=== PATIENT | male | born 1985 | race Hispanic/Latino ===

== ENCOUNTER 2017-09-19 06:06 | Observation (INO) | payer OTHER ==
[2017-09-19 06:19] VITALS: BMI 25.1
--- NOTE | 2017-09-19 07:29 | ED PDOC ---
Lower Extremity Pain/Injury Time Seen by Provider: 09/19/17 07:22 Chief Complaint (Nursing): Lower Extremity Problem/Injury Chief Complaint (Provider): Right ankle injury History Per: Patient History/Exam Limitations: no limitations Onset/Duration Of Symptoms: Days Current Symptoms Are (Timing): Still Present Severity: Moderate Additional History Per: Patient Additional Complaint(s): 32yo male, presents to ED with complaints of right ankle pain after he injured it 1 week ago while playing basketball. Patient states pain is present posteriorly and he is unable to ambulate. He denies any numbness or tingling. Patient has no other medical complaints. - Ankle/Foot Currently Unable To: Bear Weight, Straighten, Bend Or Move Past Medical History Reviewed: Historical Data, Nursing Documentation, Vital Signs Vital Signs: Last Vital Signs Temp 98.5 F 09/19/17 06:19 Pulse 73 09/19/17 06:19 Resp 20 09/19/17 06:19 BP 124/81 09/19/17 06:19 Pulse Ox 97 09/19/17 06:19 - Medical History PMH: No Chronic Diseases - Surgical History Surgical History: No Surg Hx - Family History Family History: States: No Known Family Hx - Home Medications Home Medications: Ambulatory Orders Medication Instructions Recorded Aspirin [Aspirin EC] 325 mg PO DAILY 09/19/17 Docusate [Colace] 100 mg PO TID PRN 09/19/17 Ondansetron HCl [Zofran] 4 mg PO .Q4-6 PRN 09/19/17 oxyCODONE/Acetaminophen [Percocet 1 tab PO .Q4-6 PRN 09/19/17 5/325 mg Tab] - Allergies Allergies/Adverse Reactions: Allergies Allergy/AdvReac Type Severity Reaction Status Date / Time No Known Allergies Allergy Verified 09/19/17 06:23 Review of Systems ROS Statement: Except As Marked, All Systems Reviewed And Found Negative Musculoskeletal: Positive for: Foot Pain (right ankle pain) Neurological: Negative for: Weakness, Numbness Physical Exam - Reviewed Nursing Documentation Reviewed: Yes Vital Signs Reviewed: Yes - Physical Exam Appears: Positive for: Non-toxic, Uncomfortable Head Exam: Positive for: ATRAUMATIC, NORMAL INSPECTION, NORMOCEPHALIC Skin: Positive for: Normal Color Neck: Positive for: Supple Cardiovascular/Chest: Positive for: Regular Rate, Rhythm Respiratory: Positive for: Normal Breath Sounds. Negative for: Respiratory Distress Pulses-Radial (R): 2+ Gastrointestinal/Abdominal: Positive for: Normal Exam, Soft. Negative for: Tenderness Extremity: Positive for: Tenderness (tenderness to right ankle; absence of achilles tendon palpated in right lower extremity.), Swelling (swelling and ecchymosis noted to right posterior ankle). Negative for: Deformity Neurologic/Psych: Positive for: Alert, Oriented. Negative for: Motor/Sensory Deficits - Laboratory Results Result Diagrams: 09/19/17 08:16 09/19/17 08:16 - ECG O2 Sat by Pulse Oximetry: 97 (RA) Pulse Ox Interpretation: Normal Medical Decision Making Medical Decision Making: Impression: Right ankle injury, right Achilles tendon rupture plan: -- Labs -- CXR Time: 724 Patient to be admitted under Dr. Matt for torn Achilles tendon. Scribe Attestation: Documented by Steff Mcginnis, acting as a scribe for Steven Back MD. Provider Scribe Attestation: All medical record entries made by the Scribe were at my direction and personally dictated by me. I have reviewed the chart and agree that the record accurately reflects my personal performance of the history, physical exam, medical decision making, and the department course for this patient. I have also personally directed, reviewed, and agree with the discharge instructions and disposition. Disposition - Clinical Impression Clinical Impression: Achilles tendon tear - Patient ED Disposition Is Patient to be Admitted: Yes - Disposition Disposition Time: 07:25 Condition: FAIR - Pt Status Changed To: Hospital Disposition Of: Observation - POA Present On Arrival: None
--- NOTE | 2017-09-19 08:26 | RAD ---
HISTORY: preop COMPARISON: No prior. TECHNIQUE: Chest PA and lateral FINDINGS: LUNGS: No active pulmonary disease. PLEURA: No significant pleural effusion identified. No pneumothorax apparent. CARDIOVASCULAR: Normal. OSSEOUS STRUCTURES: No significant abnormalities. VISUALIZED UPPER ABDOMEN: Normal. OTHER FINDINGS: None. IMPRESSION: No acute cardiopulmonary disease appreciated.
[2017-09-19 08:32] LABS: BASO % 0.5 % (0.0-2.0); EOS # 0.3 K/uL (0.0-0.7); EOS % 3.4 % (0.0-4.0); HEMOGLOBIN 13.7 g/dL (12.0-18.0); LYMPH # 1.7 K/uL (1.0-4.3); LYMPH % 21.3 % (20.0-40.0); MEAN CELL VOLUME 90.9 fl (80.0-94.0); MEAN CORPUSCULAR HEMOGLOBIN 30.3 pg (27.0-31.0); MEAN CORPUSCULAR HGB CONC 33.4 g/dL (33.0-37.0); MEAN PLATELET VOLUME 9.2 fl (7.2-11.7); MONO # 0.8 K/uL (0.0-0.8); NEUT % 64.8 % (50.0-75.0); RBC 4.52 Mil/uL (4.40-5.90); RED CELL DISTRIBUTION WIDTH 12.6 % (11.5-14.5); WHITE BLOOD COUNT 7.8 K/uL (4.8-10.8)
[2017-09-19 08:48] LABS: ALB/GLOB RATIO 1.4 (1.0-2.1); ALBUMIN 4.5 g/dL (3.5-5.0); ALT/SGPT 49 U/L (21-72); AST/SGOT 35 U/L (17-59); BLOOD UREA NITROGEN 18 mg/dl (9-20); GFR AFRICAN-AMERICAN > 60; GFR NON-AFRICAN AMERICAN > 60
[2017-09-19] MEDS ORDERED: Ropivacaine 0.5% 30ML IV ONE (09:21)
[2017-09-19] MEDS ORDERED: Bupivacaine HCl 0.5% PF (30 ml) Inj ONE (09:21)
[2017-09-19] MEDS ORDERED: Midazolam 2 MG/2 ML VIAL ONE (09:23)
[2017-09-19] MEDS ORDERED: Lidocaine 4% (Laryng-O-Jet) Kit MM ONE (09:23)
[2017-09-19] MEDS ORDERED: Propofol 10 mg/ml Inj (20 ML) ONE ×2 (09:27→09:28)
[2017-09-19 09:32] LABS: PROTHROMBIN TIME 11.7 Seconds (9.8-13.1)
[2017-09-19 09:33] LABS: INR 1.1 (0.9-1.2)
[2017-09-19] MEDS ORDERED: Lidocaine 1% Inj (20ml) ONE (09:40)
[2017-09-19] MEDS ORDERED: Bupivacaine 0.5% Inj(30mL) ONE (09:40)
[2017-09-19] MEDS ORDERED: Sodium Chloride 0.9% 500 ML IV ONE (10:39)
[2017-09-19] MEDS ORDERED: Lactated Ringer's 1,000 ML IV ONE (10:40)
[2017-09-19] MEDS ORDERED: Dexamethasone 4 mg/1 ml IVP PRN (11:48)
[2017-09-19] MEDS ORDERED: HYDROmorphone 0.5 mg/0.5 ml ISec IVP PRN (11:48)
--- NOTE | 2017-09-19 11:48 | PCM.ANESB2 ---
Popliteal Nerve Block - Popliteal Nerve Block Date of Procedure: 09/19/17 Anesthesiologist: [place] Pre-Procedure Diagnosis: Right Achilles tendon tear Post-Procedure Diagnosis: Same Procedure Performed: Popliteal Nerve Block Right - Procedure Popliteal Nerve Block: This procedure was explained to the patient that it is for post-operative pain management. Consent was obtained after a thorough discussion with the patient regarding the benefits and possible complications of local anesthetic block of the sciatic nerve at the popliteal level. The patient was brought to the operating room and standard monitors are applied. Time-out was held with the circulating nurse to confirm the correct surgery and the appropriate block. After applying oxygen by nasal cannula and administering IV Sedation, patient's operative leg was gently raised and supported and the groove in between the biceps femoris and vastus lateralis muscles was carefully palpated. The skin approximately 8cm above the popliteal crease was then marked. The ultrasound transducer was then applied to the posterior thigh approximately 8cm above the popliteal crease in the transverse plane and the sciatic nerve before its division was visualized lateral to the popliteal artery and in between the bicep femoris and semimembranosus/semitendinosus muscles. After identification, the lateral portion of the thigh was prepped with Betadine solution three times and Lidocaine 1% was injected subcutaneously for topical anesthesia. At this point, a # 21 gauge Stimuplex insulated 4 inch needle was inserted into pre-marked area and advanced in a perpendicular direction. The needle was inserted above the ultrasound transducer in-plane towards the sciatic nerve in a [id number] direction. Needle advancement was performed carefully under direct ultrasound visualization. Nerve stimulator was used and dorsiflexion of the __right___ foot was elicited at a current of __0.4___ MA. After repeated negative aspiration, __30___cc of __.5___ % ___Ropivacaine was injected. Under ultrasound guidance the local anesthetics were observed surrounding sciatic nerve . The needle was removed intact and sterile dressing was applied. The patient tolerated the popliteal nerve block well with stable vital signs and was subsequently prepared for the surgery. At the end of the surgery, a saphenous nerve block was performed. The skin over right medial femoral condyle was cleansed with alcohol. A 25G was inserted perpendicular to the skin until bony contact was made. After negative aspiration, 10ml of .5% bupivacaine was injected in fan-like fashion. Patient tolerated procedure well and was subsequently extubated and transferred to PACU.
--- NOTE | 2017-09-19 11:52 | PCM.SURG1 ---
Surgeon's Initial Post Op Note - Surgeon's Notes Surgeon: Dr. Matt Ferry Operator: Dr. Wisdom DPM PGY-2, Dr. Atkins DPM PGY-2 Type of Anesthesia: General LMA Anesthesia Administered By: Dr. Claire Pre-Operative Diagnosis: right achilles tendon rupture Operative Findings: see dication Post-Operative Diagnosis: same Operation Performed: right achilles tendon repair, debridement Specimen/Specimens Removed: none Estimated Blood Loss: EBL {In ML}: 2 Blood Products Given: N/A Drains Used: No Drains Date of Surgery/Procedure: 09/19/17 Time of Surgery/Procedure: 11:52
[2017-09-19 12:13] VITALS: RESP 18
--- NOTE | 2017-09-19 13:09 | OP ---
PROCEDURE DATE: 09/19/2017 PREOPERATIVE DIAGNOSES: 1. Right acute Achilles tendon rupture. 2. Expanding seroma and swelling of the right ankle. POSTOPERATIVE DIAGNOSES: 1. Right acute Achilles tendon rupture. 2. Expanding seroma and swelling of the right ankle. PROCEDURE: 1. Right ankle open Achilles tendon repair with FiberWires. 2. Extensive wound debridement and evacuation of hematoma and soft tissue debridement. SURGEON: Ava Matt MD. NEWS INTERN: Dante Leonardo MD. TYPE OF ANESTHESIA: General and popliteal nerve block. ESTIMATED BLOOD LOSS: 20 mL. COMPLICATIONS: None. HISTORY: The patient is a 32-year-old male who had an acute injury to his right ankle. The patient had undergone MRI, which showed extensive Achilles tendon rupture. The patient was presented to the ER with an increasing amount of pain and hematoma and decreased sensation. The patient was seen by me in the emergency room and I had a detailed discussion with offering different treatment options. Due to acute swelling, I recommended urgent evacuation of the hematoma and Achilles tendon repair. I reviewed the risks and benefits of the surgery with the patient in detail, which included bleeding, infection, neurovascular damage, continued pain, stiffness, blood clots, need for further surgery, wound dehiscence among others. The patient fully understood the risks and benefits and opted to proceed for the surgery. DESCRIPTION OF PROCEDURE: The patient was brought up to the preop holding area. A laterality sheet was completed confirming the patient's right ankle to be the correct operative site. An informed consent was signed from the patient. He was brought into operating room table. He underwent general anesthesia and a popliteal nerve block. He was placed prone on the operating room table and a padded tourniquet was applied to the patient's right thigh and the right ankle was draped and prepped in standard manner. First, a time-out was completed confirming the patient's right ankle to be the correct operative site. The tourniquet was inflated to 350 mmHg. A 6 cm incision was made starting on the medial aspect of the Achilles. The seroma was exsanguinated. Next, we proceeded with extensive soft tissue debridement with a copious irrigation and using the Metzenbaum scissors, the wound was extensively debrided to remove all the tissue. Next, 2 frayed edges of the Achilles tendon were found and appeared to be adherent to tear. For fixation, we used 4 #2 FiberWire ran in [place] fashion both proximal and distal stumps. For fixation, the foot was placed about 20 degrees of plantarflexion and knots were tied to secure and complete the repair. Next, the repair was augmented with 0 Vicryl sutures. The wound was copiously irrigated and the skin edges were brought together using 3-0 Vicryl and skin was closed using 3-0 Monocryl sutures. Sterile dressing was applied. The patient was placed in a posterior splint with foot about 20 degrees of plantarflexion. His postoperative instruction included stay nonweightbearing with use of crutches and follow up in my office. Dr. Dante Leonardo is a board certified orthopedic surgeon who was present for the entirety of the case. His participation was crucial in patient positioning, retraction and successful completion of the surgery. Ava Matt MD
[2017-09-19 14:05] VITALS: BP 117/67; PULSE 88; TEMP 97.9; O2SAT 99
--- NOTE | 2017-09-19 22:01 | CON ---
DATE: 09/19/2017 EMERGENCY ROOM CONSULTATION CHIEF COMPLAINT: Right ankle pain and swelling. HISTORY OF PRESENT ILLNESS: The patient is a 32-year-old male who has a recent history of Achilles tendon rupture. The patient presented to the emergency room with a progressive amount of pain and hematoma. He reports he had undergone an MRI, which revealed a full-thickness tear and was planning on surgical fixation; however, the patient reports in the interim, symptoms are progressively increased consist pain and swelling and increased tightness in the Achilles region. Also, associated with some decreased sensation of lateral aspect of the foot. PHYSICAL EXAMINATION: Examination of the patient's right ankle, there is significant swelling and ecchymosis. The compartments are tight, but compressible. The patient reports a decreased sensation in the sural nerve distribution. Neurovascularly, intact distally. Limited range of motion secondary to pain. Negative Homans test. No indication of blood clots. ASSESSMENT: A 32-year-old male with acute Achilles tendon rupture. TREATMENT: I had a detailed discussion with the patient reviewing his history, physical exam, and imaging findings. Due to increased pressure, change in neurovascular status, and expanding seroma, I am recommending urgent Achilles tendon repair. I reviewed the risks and benefits of the surgery with the patient in detail, which include bleeding, infection, neurovascular damage, continued pain, stiffness, blood clots, wound dehiscence, needs of further treatment, among others. The patient fully understood the risks and benefits and would like to proceed with surgery as soon as possible. Ava Matt MD
--- NOTE | 2017-09-20 11:41 | CARD ---
APPROVED REPORT EKG Measurement Heart [id number] <Conclusion> Normal sinus rhythm Normal ECG
== END 2017-09-19 14:50 | disposition home or self-care (01) ==
LOC: H.ER 06:06 → H.ERHOLD 07:25
PROVIDERS: ADMIT Orthopaedic Surgery; ATTEND Orthopaedic Surgery
DX: S86.011A Strain of right Achilles tendon, initial encounter (principal); Y93.67 Activity, basketball; X58.XXXA Exposure to other specified factors, initial encounter; S90.01XA Contusion of right ankle, initial encounter
CPT/HCPCS: 11043; 27650; 71046; 80053; 85025; 85610; 86850; 86900; 97116; 97161; G0378; G8978; G8979; G8980; J0690; J2001; J2250; J2405; J2704; J3010; J7040; J7120